=== PATIENT | female | born 1995 | race Caucasian/White ===

== ENCOUNTER → 2018-04-21 15:58 | Outpatient (CLI) | payer OTHER, SELFPAY ==
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
== END ==
PROVIDERS: Family Provider Internal Medicine; PCP Internal Medicine; Referring Provider Internal Medicine; Visit Provider Internal Medicine
DX: R51 Headache (principal)
CPT/HCPCS: 72040

== ENCOUNTER 2019-01-10 11:45 | Emergency (ER) | payer OTHER, SELFPAY ==
[2019-01-10 11:46] VITALS: BP 143/78; PULSE 83; RESP 16; TEMP 37.4; O2SAT 100; BMI 24.9
[2019-01-10] MEDS: 0.9% Normal Saline 1,000 ML 1000 ML IV (12:16)
--- NOTE | 2019-01-10 12:16 | ED.VIS.GEN ---
History of Present Illness Informant: Patient, Significant Other Onset: Weeks - 2 weeks Context: Gradual Onset Timing: Continuous Quality: pruritic Location: abdomen Current Severity: Mild Maximum Severity: Mild Worsened by: nothing Relieved by: nothing Associated Symptoms: nausea Narrative: 23-year-old female presents for blood work. Patient was in urgent care this morning who sent her to the emergency department for abdominal pain and blood work. She is has a rash on her abdomen that is pruritic is been there for about 2 weeks initially she thought it was due to a new item of clothing she purchased. Patient has not taken any medications for her symptoms. She is not having vomiting or diarrhea or fevers. She is not short of breath. No urinary symptoms. She is not having any significant abdominal pain. She is been able to eat and drink normally. Prior similar symptoms: Yes Recent Illness/Hospitalization: No <John Aldridge - Last Filed: 01/10/19 13:06> <Mariella Escboar - Last Filed: 01/10/19 16:07> Chief Complaint: Nausea/Vomiting Past Medical History Prior records reviewed: Yes Past Medical History: None Surgical History: no surgical history Lives: With Family Smoking Status: Never smoker <John Aldridge - Last Filed: 01/10/19 13:06> <Mariella Escobar - Last Filed: 01/10/19 16:07> - Allergies and Home Meds Allergies/Adverse Reactions: Allergies No Known Allergies Allergy (Verified 01/10/19 11:49) Primary Care Physician: Joan Jones DO [Primary Care Provider] - Review of Systems All systems negative except as indicated General: Denies: Chills, Fever Cardiovascular: Denies: Chest pain Gastrointestinal: Reports: Nausea. Denies: Abdominal pain, Vomiting, Diarrhea, Constipation, Melena, Hematochezia Genitourinary: Denies: Dysuria, Hematuria, Frequency Musculoskeletal: Denies: Myalgias Skin: Reports: Rash. Denies: Abscess, Abrasions, Wounds Neurological: Denies: Headache, Weakness, Parasthesia, Numbness <John Aldridge - Last Filed: 01/10/19 13:06> Physical Exam Vital Signs/Narrative: Vital Signs Temp Pulse Resp BP Pulse Ox 01/10/19 11:46 99.3 F H 83 16 143/78 H 100 Inital Vital Signs reviewed: Yes General: Well nourished, Well developed, No Acute Distress Head: Normocephalic, Atraumatic Eyes: Perrl, EOMI ENT: Moist mucous membranes Neck: Supple, Nontender, No lymphadenopathy, No JVD Cardiovascular: Regular rate, Regular rhythm, No murmurs Abdomen: Soft, Nontender, Nondistended, Normal bowel sounds, No masses Back: Nontender, Normal Inspection Extremities: Nontender, No edema Skin: No Trauma, Rash - -year-old rash over the abdomen. It is not located in her else. No petechiae or purpura or vesicles or pustules. No sloughing of the skin or lesions within the mouth or on any mucous membranes palms or soles of the feet. Neurological: Alert, Oriented x3 <John Aldridge - Last Filed: 01/10/19 13:06> Vital Signs/Narrative: Vital Signs Pulse Resp BP Pulse Ox 01/10/19 13:23 61 18 114/74 99 Skin: Rash - diffuse macular-papular rash over the abdomen, flank and back. No petechiae or purpura or vesicles or pustules. No sloughing of the skin or lesions within the mouth or on any mucous membranes palms or soles of the feet. <Mariella Escobar - Last Filed: 01/10/19 16:07> Diagnostic/Tx/Re-eval - Medical Decision Making Patient's laboratory work-up including CBC, CMP and lipase unremarkable as was urinalysis and . He was given a liter of fluids. Repeat evaluation at this time we do feel her rash is due to Pityriasis Rosea. Prescribed topical corticosteroids and Vistaril. 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 Agree with above visual exam, history and review of systems except for changes made. Patient has 2 weeks of a rash on her abdomen. 3 weeks ago she had ear infection. Urgent care listed a history of abdominal pain nausea and vomiting. They are concerned about acute intra-abdominal process and sent her to the emergency room. She appears nontoxic in no acute distress. Patient does not have any abdominal pain or GI symptoms at this time. Blood work is ordered which is also normal. Rashes consistent with pityriasis rosea. Patient comments that she did have an ear infection 3 weeks ago which might of been a viral syndrome that caused the rash. Patient is counseled on the typical course of this. She is counseled on need for outpatient follow-up and symptomatic treatment. Regardless, rash is not concerning for petechia, vasculitis, Magdaleno-Vineet syndrome or other acute emergent process. <Mariella Escobar - Last Filed: 01/10/19 16:07> ED Disposition <John Aldridge - Last Filed: 01/10/19 13:06> <Mariella Escobar - Last Filed: 01/10/19 16:07> - Plan for ED Patient: Disposition: Home or Assisted Living Diagnosis: Pityriasis rosea Instructions: Pityriasis Rosea Prescriptions: Hydroxyzine HCl 25 mg PO TID PRN #20 tab PRN Reason: Itching Prescription Printed Hydrocortisone 2.5% Crm [Hytone] 1 applic TOPICAL BID PRN PRN #1 tube PRN Reason: Rash/Topical Irritation Prescription Printed Referrals: Joan Jones DO [Primary Care Provider] -
[2019-01-10 12:23] LABS: Bacteria 0 SEEN /hpf (None Seen); Mucous, Urine 0 SEEN /hpf (<or=2+); Red Blood Cells-Urine 0 SEEN /hpf (0-5); White Blood Cells 0 SEEN /hpf (0-5)
[2019-01-10 12:26] LABS: Absolute Lymphocyte Count 2.07 X10^3/uL (0.83-4.51); Absolute Neutrophil Count 3.3 X10^3/uL (2.0-7.7); Basophil# 0.05 X10^3/uL; Basophil% 0.8 % (0-1); Eosinophil# 0.05 X10^3/uL; Eosinophils% 0.8 % (0-5); Hematocrit 41.8 % (37-47); Hemoglobin 13.7 g/dL (12.0-15.0); Lymphocyte # 2.07 X10^3/ul (4.0); Lymphocyte % 34.7 % (19-41); Mean Corp Hgb Conc 32.8 g/dL (32-36); Mean Corpuscular Hgb 32.1 pg (27.0-32.0); Mean Corpuscular Volume 97.9 fL (81-99); Mean Platelet Vol. 10.1 fl (6.2-12.0); Monocyte# 0.53 X10^3/uL; Monocyte% 8.9 % (0-10); NRBC Flagged by Analyzer 0 % (0-5); Neutrophil # 3.25 X10^3/uL (2.7-7.7); Neutrophil % 54.5 % (47-70); Platelet Count 227 K/mm3 (150-450); RBC Distribution Width CV 12.3 % (11.6-14.6); RBC Distribution Width SD 44.5 fl (35.1-43.9); Red Blood Count 4.27 M/mm3 (4.2-5.4)
[2019-01-10 12:30] LABS: Internal QC Validated? YES +Cl - CLEAR BKGD
[2019-01-10 12:31] LABS: Pregnancy, Urine Negative Negative
[2019-01-10 12:33] LABS: Color, Urine Yellow (Yellow); Glucose, Dipstick Normal (Normal); Ketone-Dipstick 5 mg/dl (Negative); Leukocyte Esterase-Dipstick Negative /ul (Negative); Nitrite-Dipstick Negative (Negative); Occult Blood-Urine 10 /ul (Negative); Protein-Dipstick Negative (Negative); Specific Gravity, Urine 1.025 (1.002-1.030); Urine Bilirubin Dipstick Negative (Negative); Urine Clarity Clear (Clear); Urine Urobilinogen Normal (Normal)
[2019-01-10 12:36] LABS: Squamous Epithelial Cells - UA 0-5 SEEN /hpf (5-10)
[2019-01-10 12:42] LABS: ALB/GLOB Ratio 1.2 RATIO (0.9-2.4); AST(SGOT) 14 U/L (15-37); Alanine Aminotransfer ALT/SGPT 23 U/L (13-56); Alkaline Phosphatase 51 U/L (45-117); Anion Gap 6 (5-15); BUN 12 mg/dL (7-18); Calcium,Total 8.9 mg/dL (8.5-10.1); Chloride 107 mmol/L (98-107); Creatinine, Serum 0.92 mg/dL (0.55-1.02); EST Glomerular Filtration Rate 81 mL/min (>60); Est Glom Filt Rate - Afr Amer 98 mL/min (>60); Estimated Creatinine Clearance 97.58 ml/min; Globulin 3.3 g/dL (2.2-4.2); Glucose 94 mg/dL (74-106); Lipase 119 U/L (73-393); Potassium 3.7 mmol/L (3.5-5.1); Protein, Total 7.3 g/dL (6.4-8.2); Sodium Level 139 mmol/L (136-145)
[2019-01-10 13:23] VITALS: BP 114/74; PULSE 61; RESP 18; O2SAT 99
== END 2019-01-10 13:23 | disposition home or self-care (01) ==
PROVIDERS: Emergency Provider Physician Assistant Medical; Family Provider Internal Medicine; PCP Internal Medicine
DX: L42 Pityriasis rosea (principal)
CPT/HCPCS: 80053; 81001; 81025; 83690; 85025; 96360; 99283